=== PATIENT | female | born 1995 | race Caucasian/White ===

== ENCOUNTER 2019-05-23 06:16 | Inpatient (IN) ==
[2019-05-23] MEDS ORDERED: FAMOTIDINE 20 MG/2 ML VIAL IV ONE (07:13)
[2019-05-23] MEDS ORDERED: CLINDAMYCIN INJ 900 MG in PREMIX 1 EACH IV ONE (07:13)
[2019-05-23] MEDS ORDERED: CITRIC ACID/SODIUM CITRATE 30 ML UDCUP PO ONE (07:13)
[2019-05-23] MEDS ORDERED: OXYTOCIN/LR 20 UNIT/1,000 ML BAG IV ONE ×2 (07:15→11:43)
[2019-05-23] MEDS: LACTATED RINGERS 1,000 ML IV SCH ×2 (07:28→22:08)
[2019-05-23 07:40] LABS: Basophils % 0.3 % (0.0-0.8); Eosinophils # 0.1 10*3/uL (0.0-0.87); Eosinophils % 0.4 % (0.00-10.9); Hematocrit 38.2 VOL% (35.7-47.0); Hemoglobin 12.1 GM/DL (12.0-16.0); Immature Granulocytes % 0.6 %; Lymphocytes # 3.3 10*3/uL (1.4-4.0); Lymphocytes % 20.5 % (21.3-54.2); Mean Corpuscular HGB Conc 31.7 GM/DL (32-36); Mean Corpuscular Volume 79.6 FL (87-102); Monocytes % 6.4 % (1.7-12.7); Neutrophils % 71.8 % (38.7-73.9); Platelet Count 291 T/CUMM (130-400); Red Cell Distribution Width 15.2 % (9.3-17.3); White Blood Count 15.9 T/CUMM (4-12)
[2019-05-23 08:09] LABS: Alanine Aminotransferase 15 U/L (13-56); Albumin 2.7 G/DL (3.4-5.0); Alkaline Phosphatase 196 U/L (45-117); Aspartate Amino Transferase 16 U/L (0-37); Bilirubin,Total < 0.39 MG/DL (0.2-1.0); Blood Urea Nitrogen 18 MG/DL (7-18); Calcium 8.7 MG/DL (8.5-10.1); Glucose 73 MG/DL (74-106); Osmolality,Calculated 275.7 MOS/KG (273-304); Total Protein 7.2 G/DL (6.4-8.3)
[2019-05-23] MEDS ORDERED: LACTATED RINGERS 1,000 ML IV ONE (10:00)
[2019-05-23] MEDS ORDERED: ACETAMINOPHEN 1,000 MG/100 ML VIAL IV ONE (11:32)
[2019-05-23] MEDS ORDERED: LANOLIN 50% CREAM 0.3 OZ TUBE TOP PRN (11:43)
[2019-05-23] MEDS ORDERED: BISACODYL 10 MG SUPP RECTAL PRN (11:43)
[2019-05-23] MEDS ORDERED: ACETAMINOPHEN 325 MG TABLET PO PRN (11:43)
[2019-05-23] MEDS ORDERED: RHO(D) IMMUNE GLOBULIN 300 MCG SYRINGE IM ONE (11:43)
[2019-05-23] MEDS ORDERED: DIPH/TET/ACEL PERT BOOSTER VACCINE 0.5 ML VIAL IM ONE (11:43)
[2019-05-23] MEDS ORDERED: MEASLES/MUMPS/RUBELLA VACCINE 0.5 ML VIAL SUBCUT ONE (11:43)
[2019-05-23] MEDS ORDERED: oxyCODONE/ACETAMINOPHEN 5-325 MG TABLET PO PRN (11:43)
[2019-05-23] MEDS ORDERED: BENZOCAINE 20%/MENTHOL 0.5% SPRAY 56 GM CAN TOP PRN (11:43)
[2019-05-23] MEDS ORDERED: WITCH HAZEL PADS 100/JAR TOP PRN (11:43)
[2019-05-23] MEDS ORDERED: HYDROCORTISONE 2.5% RECTAL CREAM 30 GM TUBE TOP PRN (11:43)
[2019-05-23] MEDS ORDERED: ONDANSETRON 4 MG/2 ML VIAL IV PRN (11:43)
[2019-05-23 12:01] LABS: Apearance,Urine CLEAR (Clear); Bacteria,Urine Occasional /HPF (Few); Bilirubin,Urine Negative (Negative); Blood, Urine Negative (Negative); Glucose,Urine (UA) Negative (Negative); Ketones,Urine 5 mg/dL (Negative); Mucus,Urine Occasional /LPF (Occasional); Nitrite,Urine Negative (Negative); Protein,Urine Negative; RBC,Urine 1 /HPF (0-4); Squamous Epithelial Cell,Urine Occasional /HPF (0-10); Urine Color Yellow (Yellow); Urine Specific Gravity 1.018 (1.001-1.035); Urine Urobilinogen < 2.0 EU/DL (0.2-1.0); WBC,Urine 1 /HPF (0-6)
[2019-05-23] MEDS ORDERED: MORPHINE 10 MG/10 ML VIAL ONE (12:02)
[2019-05-23] MEDS ORDERED: BUPIVACAINE SPINAL 0.75% 2 ML AMP SPINAL ONE (12:03)
[2019-05-23] MEDS ORDERED: BUPIVACAINE 0.5% 50 ML VIAL ONE (12:03)
[2019-05-23] MEDS ORDERED: MIDAZOLAM 2 MG/2 ML VIAL ONE (12:04)
[2019-05-23] MEDS ORDERED: EPINEPHrine 1 MG/ML VIAL ONE (12:04)
[2019-05-23] MEDS ORDERED: PHENYLEPHRINE 1 MG/10 ML SYRINGE IV ONE (12:04)
[2019-05-23] MEDS ORDERED: ONDANSETRON 4 MG/2 ML VIAL ONE (12:04)
[2019-05-23] MEDS ORDERED: DEXAMETHASONE 4 MG/1 ML VIAL ONE (12:04)
[2019-05-23] MEDS ORDERED: LACTATED RINGERS 2,000 ML IV ONE (12:04)
[2019-05-23] MEDS: CLINDAMYCIN INJ 900 MG in PREMIX 1 EACH IV SCH (18:26)
[2019-05-24] MEDS: DOCUSATE SODIUM 100 MG CAPSULE PO SCH ×3 (02:32→20:29)
[2019-05-24] MEDS: CLINDAMYCIN INJ 900 MG in PREMIX 1 EACH IV SCH (02:56)
[2019-05-24 04:42] LABS: Basophils % 0.1 % (0.0-0.8); Hematocrit 26.6 VOL% (35.7-47.0); Hemoglobin 8.7 GM/DL (12.0-16.0); Immature Granulocytes % 0.7 %; Immature Granulocytes Absolute 0.15 #; Lymphocytes % 14.1 % (21.3-54.2); Mean Corpuscular HGB Conc 32.7 GM/DL (32-36); Mean Corpuscular Volume 79.9 FL (87-102); Mean Platelet Volume 12.7 FL (9.6-12.0); Monocytes % 8.2 % (1.7-12.7); Neutrophils % 76.9 % (38.7-73.9); Platelet Count 191 T/CUMM (130-400); Red Blood Count 3.33 MC/CUMM (3.8-5.5); Red Cell Distribution Width 15.2 % (9.3-17.3)
[2019-05-24 05:28] LABS: Lymphocytes 15 % (20-55); Segmented Neutrophils 85 % (50-85); Total Cells Counted 100
[2019-05-24 05:29] LABS: Hypochromasia Slight; Platelet Estimate Adequate; Polychromasia Few
[2019-05-24] MEDS ORDERED: MAGNESIUM HYDROXIDE SUSP 30 ML UDCUP PO PRN (07:15)
[2019-05-24] MEDS: FERROUS SULFATE 325 MG TABLET PO SCH ×2 (08:54→20:29)
[2019-05-24] MEDS: oxyCODONE/ACETAMINOPHEN 5-325 MG TABLET PO PRN ×2 (09:18→17:02)
[2019-05-24] MEDS: IBUPROFEN 800 MG TABLET PO PRN (18:15)
[2019-05-25] MEDS: IBUPROFEN 800 MG TABLET PO PRN (07:19)
[2019-05-25] MEDS: oxyCODONE/ACETAMINOPHEN 5-325 MG TABLET PO PRN (07:20)
[2019-05-25 07:23] VITALS: BP 114/63
[2019-05-25] MEDS: FERROUS SULFATE 325 MG TABLET PO SCH (08:30)
[2019-05-25] MEDS: DOCUSATE SODIUM 100 MG CAPSULE PO SCH (08:35)
== END 2019-05-25 13:20 | disposition home or self-care (01) | DRG 788 ==
LOC: N.LD 06:16 → N.OB 15:10
PROVIDERS: ADMIT Specialist; ATTEND Specialist
PROC: LDCSECT (ICD-10-PCS; 2019-05-23 12:15)